=== PATIENT | male | born 1950 | race Caucasian/White ===

== ENCOUNTER 2017-12-07 00:34 | Day surgery (SDC) | payer OTHER ==
[2017-12-06 11:51] VITALS: BP 164/87
--- NOTE | 2017-12-06 12:14 | PCM.EKG ---
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
[2017-12-06 14:24] LABS: BASOPHIL # 0.1 10^3/uL (0.0-0.1); BASOPHIL % 0.5 % (0.0-0.2); EOSINOPHIL # 0.1 10^3/uL (0.0-0.2); EOSINOPHIL % 1.1 % (0.0-5.0); HEMOGLOBIN 14.1 g/dL (13.9-16.3); LYMPHOCYTES # 1.8 10^3/uL (1.0-4.8); MEAN CELL HGB 32.6 pg (26-34); MEAN CELL HGB CONCENTRATION 34.3 g/dL (33-37); MEAN CORP VOLUME 95.1 fL (78-100); MEAN PLATELET VOLUME 12.2 fL (7.8-11.0); MONOCYTES # 0.9 10^3/uL (0.3-0.8); MONOCYTES % 9.7 % (5.0-12.0); NEUTROPHIL # 6.9 10^3/uL (1.8-7.7); NEUTROPHILS % 70.6 % (41.0-85.0); RED CELL DISTRIBUTION WIDTH 13.9 % (11.5-14.5); WHITE BLOOD CELL 9.7 10^3/uL (4.5-11.0)
[2017-12-06 14:57] LABS: CALCIUM 9.7 mg/dL (8.4-10.5); CARBON DIOXIDE 25.5 mmol/L (20.0-32)
[2017-12-07] VITALS (8 sets, daily range): BP systolic 140–188; BP diastolic 70–92
[~2017-12-07] VITALS: Ht 182.9 cm; Wt 67.1 kg
[~2017-12-07 00:34] MED LIST: ACET-687 PO; ALLO300T PO; AMLO10TA6 PO; BENA20TA4 PO; DICL100G19 TP; GABA300C10 PO; MELO15TA24 PO; METH750T94 PO; MIRT15TA PO; TIZA4TAB PO; TOPI100T8 PO; TRAM50TA PO; [UNRECOGNIZED DRUG - OTHER] PEG
[2017-12-07] MEDS ORDERED: LACTATED RINGERS 1,000 ML ONE ×2 (05:45→12:43)
[2017-12-07] MEDS ORDERED: SODIUM CHLORIDE IR ONE (07:17)
[2017-12-07] MEDS ORDERED: SENSORCAINE-MPF 0.25% VIAL ONE (07:17)
[2017-12-07] MEDS ORDERED: XYLOCAINE 2%-EPI 1:100,000 ONE (07:18)
[2017-12-07] MEDS: LACTATED RINGERS 1,000 ML IV SCH ×2 (08:26→12:48)
[2017-12-07] MEDS ORDERED: VALIUM ONE (08:48)
[2017-12-07] MEDS ORDERED: DIPRIVAN IV ONE (10:32)
[2017-12-07] MEDS ORDERED: LIDOCAINE 2% VIAL ONE (10:32)
[2017-12-07] MEDS ORDERED: SUBLIMAZE ONE ×2 (10:32→13:52)
[2017-12-07] MEDS ORDERED: DECADRON ONE (10:32)
[2017-12-07] MEDS ORDERED: TORADOL ONE (10:32)
[2017-12-07] MEDS ORDERED: VERSED ONE ×2 (10:32→11:55)
[2017-12-07] MEDS ORDERED: ZOFRAN ONE (10:32)
[2017-12-07] MEDS ORDERED: VERSED IV STA (11:58)
[2017-12-07] MEDS: SUBLIMAZE IV PRN ×3 (13:57→14:10)
[2017-12-07] MEDS ORDERED: ULTRAM PO PRN (14:00)
[2017-12-07] MEDS ORDERED: LACTATED RINGERS 1,000 ML SCH (14:00)
[2017-12-07] MEDS ORDERED: DILAUDID IV PRN (14:00)
[2017-12-07] MEDS ORDERED: ULTRAM ONE (14:28)
[2017-12-07] MEDS ORDERED: TRAM50TA PO (14:47)
--- NOTE | 2017-12-07 15:04 | OPH ---
DATE OF SURGERY: 12/07/2017 PREOPERATIVE DIAGNOSES: 1. Ganglion cyst of the extensor tendons of the right long and ring fingers. 2. 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 POSTOPERATIVE DIAGNOSES: 1. Ganglion cyst of the extensor tendons of the right long and ring fingers. 2. 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 OPERATIVE PROCEDURE: 1. Excision of ganglion cyst, right long finger extensor tendon 2. Excision of right ring finger ganglion cyst off of the extensor tendons. 3. Debridement of osteophytes and loose bodies about right long finger MCP joint. SURGEON: Gustabo Vieyra MD ANESTHESIA: LMA. TOURNIQUET TIME: 33 minutes at 300 mmHg. DRAINS: None. BLOOD LOSS: 10 mL. DESCRIPTION OF INDICATIONS: The patient is a 67-year-old male with a painful cystic mass between the right ring and long fingers for the last several months. He states that the swelling is getting progressively more severe and more painful for him. He states that he had a similar problem with his other hand several years ago and had it debrided by a surgeon in [place]. The patient takes meloxicam as well as Voltaren and Tylenol No. 3 for his pain. The exam shows that he has a cystic type mass between the metacarpal heads of the ring and the long fingers dorsally. He has obvious arthritic changes with spurring about the MCP joints of all of his fingers. The long finger and the ring finger seemed to be the most severely involved. It was explained to the patient that the arthritic changes are probably causing the cyst and that to remove the cyst ____ the arthritic symptoms, but he was very adamant that this cysts themselves were very painful and he wanted to have them excised. DESCRIPTION OF PROCEDURE: The patient was placed on the operating table in the supine position. An LMA anesthetic was induced without difficulty. A well-padded tourniquet was placed around the right upper extremity. Right upper extremity was then sterilely prepped and draped. The patient had a 3-inch Esmarch used to exsanguinate the hand. The tourniquet was inflated to 300 mmHg. The patient had a Z-type incision made over the MCP joint between the long and the ring fingers. Incision was taken through the skin. He did have a large oblong ganglion cyst over the extensor tendons and capsule of the long finger and ring finger. The cyst was removed off of the tendon sheath. The patient had a large osteophyte and a loose body off of the ulnar side of his long finger MCP joint. The capsule was opened and the large loose body was removed. Any peripheral osteophytes were trimmed. The extensor tendons over the ring finger likewise had a cystic synovial ganglion cyst-like formation over the extensor tendons and this was likewise debrided. The wounds were then copiously irrigated and the skin was closed with a 3-0 Ethilon in a vertical mattress method. The patient was extubated in the operating room and sent to recovery after compressive dressing was applied. Gustabo Vieyra MD DR: NATALYA/carroll JOB# [id number]
== END 2017-12-07 15:08 | disposition home or self-care (01) | DRG 558 ==
LOC: SDC 00:34
PROVIDERS: ATTEND Orthopaedic Surgery
DX: M67.441 Ganglion, right hand (principal); M19.041 Primary osteoarthritis, right hand; I10 Essential (primary) hypertension; M10.9 Gout, unspecified; J44.9 Chronic obstructive pulmonary disease, unspecified; F41.9 Anxiety disorder, unspecified; F32.9 Major depressive disorder, single episode, unspecified; Z79.899 Other long term (current) drug therapy; Z83.3 Family history of diabetes mellitus; Z82.49 Family history of ischemic heart disease and other diseases of the circulatory system; F17.210 Nicotine dependence, cigarettes, uncomplicated; Z88.8 Allergy status to other drugs, medicaments and biological substances; Z98.890 Other specified postprocedural states
CPT/HCPCS: 36415; 80048; 85025; 93005; J1100; J1885; J2001; J2250; J2405; J3010; J3490; J7030; J7120